=== PATIENT | female | born 1955 | race Caucasian/White ===

== ENCOUNTER 2024-10-23 18:41 | Emergency (ER) | payer MEDICARE, OTHER ==
[2024-10-23 19:06] VITALS: BP 133/57; PULSE 79; RESP 18; TEMP 98.6; BMI 37.8
[2024-10-23] MEDS ORDERED: LIDOCAINE 4% PATCH TP ONE ×2 (20:14→20:28)
[2024-10-23] MEDS: LIDOCAINE 4% PATCH TP ONE (20:20)
[2024-10-23] MEDS ORDERED: LIDOCAINE PATCH REMOVAL MC SCH (22:00)
== END 2024-10-23 20:36 | disposition home or self-care (01) ==
LOC: JER 18:41
DX: M79.671 Pain in right foot (principal); R20.2 Paresthesia of skin
CPT/HCPCS: 99283-25